=== PATIENT | female | born 1995 | race Caucasian/White ===

== ENCOUNTER 2022-06-01 09:40 | Day surgery (SDC) | payer BC, SELFPAY ==
[2022-06-01] VITALS (10 sets, daily range): BP systolic 137–171; BP diastolic 85–107; PULSE 84–97; RESP 11–16; TEMP 36.5–36.8; O2SAT 92–100; BMI 45.6
[2022-06-01 10:07] LABS: HCG Qualitative* Negative (Negative)
[2022-06-01] MEDS: LACTATED RINGERS 1000 ML 1,000 ML 100 ML IV (10:30)
--- NOTE | 2022-06-01 12:46 | W.ANESCHARGE ---
Anesthesia Charges Start Date/Time Anesthesia Start Date: 06/01/22 Anesthesia Start Time: 11:49 Stop Date/Time Anesthesia Stop Date: 06/01/22 Anesthesia Stop Time: 12:39 Summary Emergency: No
--- NOTE | 2022-06-01 12:48 | W.ANESCHARGE ---
Anesthesia Charges Start Date/Time Anesthesia Start Date: 06/01/22 Anesthesia Start Time: 11:49 Stop Date/Time Anesthesia Stop Date: 06/01/22 Anesthesia Stop Time: 12:39 Summary Emergency: No
--- NOTE | 2022-06-01 13:34 | W.PM.ENTPROC ---
Procedure Note Date of procedure: 06/01/22 Procedure: Preoperative diagnosis chronic tonsillitis Postoperative diagnosis same plus tonsillar hypertrophy Procedure tonsillectomy Under general endotracheal anesthesia patient was prepped and draped in usual fashion. The McIvor mouth gag was inserted and the tongue retracted forward. The right tonsil was removed with a combination of needlepoint and Coblation cautery. It was quite large. The nasopharynx was inspected and there was no significant adenoid tissue. The left tonsil was removed again with needlepoint cautery and Coblation. The patient tolerated procedure well and was taken recovery in satisfactory condition. 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 Blood loss during procedure was less than 20 mL. There were no complications Surgeon: Papi Fallon MD
--- NOTE | 2022-06-01 13:46 | SUR.PHASEII ---
PATIENT EATING SHERBET AND DRINKING WITHOUT PROBLEMS.
== END 2022-06-01 14:10 | disposition home or self-care (01) ==
PROVIDERS: Anesthesiology; PCP Physician Assistant Medical; Visit Provider Otolaryngology
PROC: (CPT 42826; principal; 2022-06-01 11:45)
DX: J35.01 Chronic tonsillitis (principal)
CPT/HCPCS: 42826; 00170; 84703; 88304; A9270; J0330; J2250; J2704; J3010; J3490; J7120

== ENCOUNTER 2022-08-28 09:34 | Outpatient (CLI) | payer BC, SELFPAY ==
[2022-08-28 14:18] LABS: Vitamin D 25 Hydroxy* 18 ng/mL (30-80)
[2022-08-28 14:35] LABS: Ferritin* 45.5 ng/mL (6.24-137.0)
[2022-08-28 14:49] LABS: Vitamin B12* 262 pg/mL (243-894)
== END 2022-08-28 09:35 | disposition home or self-care (01) ==
PROVIDERS: PCP Physician Assistant Medical; Visit Provider Physician Assistant Medical
DX: M79.7 Fibromyalgia (principal); R53.83 Other fatigue; E03.9 Hypothyroidism, unspecified; E66.01 Morbid (severe) obesity due to excess calories
CPT/HCPCS: 82306; 82607; 82728; 84443

== ENCOUNTER 2022-11-12 00:40 | Emergency (ER) | payer BC, SELFPAY ==
[2022-11-12 00:45] VITALS: BP 155/101; PULSE 89; RESP 16; TEMP 36.2; O2SAT 99
[2022-11-12 00:49] VITALS: RESP 18; O2SAT 97
--- NOTE | 2022-11-12 01:14 | ED.GENADULT ---
HPI - General Adult General Chief complaint: Unspecified Complaint, Adult Stated complaint: right side of face paralyzed, can't taste Time Seen by Provider: 11/12/22 01:02 History of Present Illness HPI narrative: 27-year-old young woman here with significant other with concern of loss of sensation of the right side of her face as well as inability to taste along her right tongue. This is now been going on about 2 days. Initially inquired regarding rashes; does not recall any until recalls a cold sore about a week ago which apparently has resolved. No oral blisters. Is not experiencing pain. No visual changes. No new dental problems. Related Data Home Medications Medication Instructions Recorded Confirmed cholecalciferol (vitamin D3) 25 2,000 unit PO DAILY 05/31/22 08/28/22 mcg (1,000 unit) capsule etonogestrel 0.12 mg-ethinyl 1 vag ring vaginal DIRECTED 05/31/22 08/28/22 estradiol 0.015 mg/24 hr vaginal ring Previous Rx's Medication Instructions Recorded duloxetine 60 mg capsule,delayed 60 mg PO BID #180 caps 08/13/22 release albuterol sulfate 90 mcg/actuation 2 puff inhalation Q4H PRN 08/28/22 aerosol inhaler bronchospasm #8.5 grams levothyroxine 50 mcg tablet 50 mcg PO DAILY #90 tabs 08/28/22 prednisone 20 mg tablet 40 mg PO BID 7 days #28 tabs 11/12/22 valacyclovir 1 gram tablet 1,000 mg PO TID 7 days #21 tabs 11/12/22 Allergies Allergy/AdvReac Type Severity Reaction Status Date / Time kiwi Allergy Severe Swelling Verified 08/24/22 16:08 of Lip/Tongue/Throat nut - unspecified Allergy Severe Swelling Verified 08/24/22 16:08 of Lip/Tongue/Throat Review of Systems Status of ROS: Reports: 6 or more systems reviewed and unremarkable except as noted in History and below PFSH PFSH Surgical History History of tonsillectomy [place] teeth extracted Family History Other Depression Social History Narrative: Marijuana use Smoking Status: Current every day smoker What tobacco products do you use: cigarettes Do you use any of these nicotine containing products: E-Cigarettes Second hand tobacco smoke exposure: Yes How often do you have a drink containing alcohol: 2-4 times a month How many standard drinks containing alcohol do you have on a typical day: 3 or 4 AUDIT-C Alcohol total score: 3 Non-prescribed substance use: marijuana (any form) Little interest or pleasure in doing things: several days Feeling down, depressed, or hopeless: more than half the days service: No Exam Narrative: Exam Narrative: Pleasant. NAD. She is not demonstrating dysarthria. There is clearly diminished motor over the entire right side of her face. Is able to blink but not as much as the left. TMs and ear canals are clear. Oropharynx is clear of lesions. Neck is supple without lymphadenopathy. She has good strength and intact sensation other than a sense of numbness over the right side of her face. PERRLA. Const: Vital Signs, click to edit/add: Vital Signs - 24 hr 11/12/22 00:45 11/12/22 00:49 Temperature 97.1 F L Pulse Rate [Left P ulse Oximeter] 89 Respiratory Rate 16 Respiratory Rate [ Right Jaw] 18 Blood Pressure [Ri ght Upper Arm] 155/101 H Pulse Oximetry 99 Oxygen Delivery Me thod Room Air Documenting provider has reviewed patient's vital signs: yes Course Vital Signs Vital signs: Initial Vital Signs Temperature 97.1 F L 11/12/22 00:45 Temperature Source Temporal Artery Scan 11/12/22 00:45 Pulse Rate 89 11/12/22 00:45 Pulse Rhythm 11/12/22 00:45 Respiratory Rate 16 11/12/22 00:45 Blood Pressure 155/101 H 11/12/22 00:45 Blood Pressure Mean 119 11/12/22 00:45 Blood Pressure Position Semi-Fowlers 11/12/22 00:45 Pulse Oximetry 99 11/12/22 00:45 Oxygen Delivery Method 11/12/22 00:45 Vital Signs Temperature 97.1 F L 11/12/22 00:45 Pulse Rate 89 11/12/22 00:45 Respiratory Rate 16 11/12/22 00:45 Blood Pressure 155/101 H 11/12/22 00:45 Pulse Oximetry 99 11/12/22 00:45 Oxygen Delivery Method 11/12/22 00:45 Temperature 97.1 F L 11/12/22 00:45 Pulse Rate 70 11/12/22 01:39 Respiratory Rate 16 11/12/22 01:39 Blood Pressure 148/62 H 11/12/22 01:39 Pulse Oximetry 96 11/12/22 01:39 Oxygen Delivery Method 11/12/22 01:39 Medical Decision Making MDM Narrative Medical decision making narrative: Given distribution I would not have concerns about this being a central issue. She still within the window to potentially benefit from antivirals and maybe steroids as well. 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 Perhaps triggered by or heralded by this cold sore 1 week ago. Discharge Plan Discharge Clinical Impression: Gonzales's palsy Patient Disposition: Home w/ Parent or Adult Condition: Stable Additional Instructions: I would consider eye patching at night. Otherwise during the day keep moist with generic eye ointment or other lubricating eye drop. You might want to take the 2nd dose of steroid earlier in the afternoon just because it can be a little stimulating. It may do nothing but can interfere with sleep. Might need help with diphenhydramine or doxylamine for sleep. Report any blisters. Prescriptions: New prednisone 20 mg tablet 40 mg PO BID 7 Days Qty: 28 0RF valacyclovir 1 gram tablet 1,000 mg PO TID 7 Days Qty: 21 0RF No Action cholecalciferol (vitamin D3) 25 mcg (1,000 unit) capsule 2,000 unit PO DAILY etonogestrel-ethinyl estradiol 0.12-0.015 mg/24 hr ring 1 vag ring vaginal DIRECTED Rx Instructions: INSERT VAGINALLY. LEAVE IN PLACE FOR 3 WEEKS, FOLLOWED BY A 1 WEEKREST. THENINSERT NEW RING. albuterol sulfate 90 mcg/actuation HFA aerosol inhaler 2 puff inhalation Q4H PRN (Reason: bronchospasm) Qty: 8.5 5RF levothyroxine 50 mcg tablet 50 mcg PO DAILY Qty: 90 3RF duloxetine 60 mg capsule,delayed release(DR/EC) 60 mg PO BID Qty: 180 2RF Follow Up/Referrals: Mitchell Parnell, MARISA [Primary Care Provider] - Stand Alone Forms: [employer] Info Instructions
[2022-11-12] MEDS: predniSONE 20 MG TABLET 60 MG PO (01:27)
[2022-11-12] MEDS: VALACYCLOVIR HCL 500 MG TABLET 1000 MG PO (01:30)
[2022-11-12 01:39] VITALS: BP 148/62; PULSE 70; RESP 16; O2SAT 96
== END 2022-11-12 01:41 | disposition home or self-care (01) ==
PROVIDERS: Emergency Provider Family Medicine; PCP Physician Assistant Medical
DX: G51.0 Bell's palsy (principal)
CPT/HCPCS: 99283; A9270; J7512

== ENCOUNTER 2023-01-15 20:52 | Emergency (ER) | payer BC, SELFPAY ==
[2023-01-15 21:21] VITALS: BP 155/88; PULSE 89; RESP 18; TEMP 36.7; O2SAT 99; BMI 41.8
--- NOTE | 2023-01-15 21:53 | ED_ITS ---
HPI - General Adult General Chief complaint: OB/Uterine Contractions Stated complaint: 7 weeks prego, minor bleeding, feels faint Time Seen by Provider: 01/15/23 21:34 History of Present Illness HPI narrative: 27-year-old young woman presenting to the emergency department with significant other noting an approximately 7 week with last menstrual period of 11/25/2022. She has begun over the last couple of days to have spotting noted after urination. No dysuria. No fever. No unusual vaginal discharge. She is . She is not having abdominal pains different from her usual noting some more chronic abdominal discomfort; this is no different. Sounds as though there is some degree of PCOS. Notes also fibromyalgia can affect discomfort. No new cramping pain. Did have coitus prior to this spotting. She has not yet felt quickening. Has not had ultrasound confirming location of . She has not experienced any breast tenderness nor significant nausea. Related Data Home Medications Medication Instructions Recorded Confirmed cholecalciferol (vitamin D3) 25 2,000 unit PO DAILY 05/31/22 01/15/23 mcg (1,000 unit) capsule etonogestrel 0.12 mg-ethinyl 1 vag ring vaginal DIRECTED 05/31/22 08/28/22 estradiol 0.015 mg/24 hr vaginal ring Previous Rx's Medication Instructions Recorded duloxetine 60 mg capsule,delayed 60 mg PO BID #180 caps 08/13/22 release albuterol sulfate 90 mcg/actuation 2 puff inhalation Q4H PRN 08/28/22 aerosol inhaler bronchospasm #8.5 grams levothyroxine 50 mcg tablet 50 mcg PO DAILY #90 tabs 08/28/22 prednisone 20 mg tablet 40 mg PO BID 7 days #28 tabs 11/12/22 valacyclovir 1 gram tablet 1,000 mg PO TID 7 days #21 tabs 11/12/22 Allergies Allergy/AdvReac Type Severity Reaction Status Date / Time kiwi Allergy Severe Swelling Verified 08/24/22 16:08 of Lip/Tongue/Throat nut - unspecified Allergy Severe Swelling Verified 08/24/22 16:08 of Lip/Tongue/Throat Review of Systems Status of ROS: Reports: 6 or more systems reviewed and unremarkable except as noted in History and below PFSH PFS Medical History Fibromyalgia ?M79.7 - Fibromyalgia (ICD-10) GERD (gastroesophageal reflux disease) ?K21.9 - Gastro-esophageal reflux disease without esophagitis (ICD-10) Hypothyroid ?E03.9 - Hypothyroidism, unspecified (ICD-10) Migraines ?G43.909 - Migraine, unspecified, not intractable, without status migrainosus (ICD-10) PCOS (polycystic ovarian syndrome) ?E28.2 - Polycystic ovarian syndrome (ICD-10) Surgical History History of tonsillectomy ?Z90.89 - Acquired absence of other organs (ICD-10) [place] teeth extracted ?K08.409 - Partial loss of teeth, unspecified cause, unspecified class (ICD- 10) Family History Other Depression Social History Narrative: Marijuana use Smoking Status: Current some day smoker What tobacco products do you use: cigarettes Second hand tobacco smoke exposure: Yes How often do you have a drink containing alcohol: 2-4 times a month How many standard drinks containing alcohol do you have on a typical day: 3 or 4 AUDIT-C Alcohol total score: 3 Non-prescribed substance use: marijuana (any form) Little interest or pleasure in doing things: several days Feeling down, depressed, or hopeless: more than half the days service: No Exam Narrative: Exam Narrative: Pleasant. Tall. Obese. Speaking easily fluidly and breathing easily. Moving all extremities without difficulty. Has a light abrasion in her right ankle that she associates with rubbing in her boot. Heart is distant but regular rate and rhythm no murmur rub or gallop identified. Abdomen is mildly sore throughout the mid and low abdomen to palpation. Overweight weight. Soft. No masses appreciated. exam was not done Const: Vital Signs, click to edit/add: Vital Signs - 24 hr 01/15/23 21:21 01/15/23 23:56 01/15/23 23:58 Temperature 98.0 F 97.9 F 97.9 F Pulse Rate [Right Pulse Oximeter] 89 84 84 Respiratory Rate 18 18 18 Blood Pressure [Ri ght Upper Arm] 155/88 H 125/78 125/78 Pulse Oximetry 99 99 Oxygen Delivery Me thod Room Air Room Air Documenting provider has reviewed patient's vital signs: yes Course Vital Signs Vital signs: Initial Vital Signs Temperature 98.0 F 01/15/23 21:21 Temperature Source Temporal Artery Scan 01/15/23 21:21 Pulse Rate 89 01/15/23 21:21 Respiratory Rate 18 01/15/23 21:21 Blood Pressure 155/88 H 01/15/23 21:21 Blood Pressure Mean 110 H 01/15/23 21:21 Blood Pressure Position Sitting 01/15/23 21:21 Pulse Oximetry 99 01/15/23 21:21 Oxygen Delivery Method Room Air 01/15/23 21:21 Vital Signs Temperature 98.0 F 01/15/23 21:21 Pulse Rate 89 01/15/23 21:21 Respiratory Rate 18 01/15/23 21:21 Blood Pressure 155/88 H 01/15/23 21:21 Pulse Oximetry 99 01/15/23 21:21 Oxygen Delivery Method Room Air 01/15/23 21:21 Temperature 97.9 F 01/15/23 23:58 Pulse Rate 84 01/15/23 23:58 Respiratory Rate 18 01/15/23 23:58 Blood Pressure 125/78 01/15/23 23:58 Pulse Oximetry 99 01/15/23 23:56 Oxygen Delivery Method Room Air 01/15/23 23:56 Medical Decision Making MDM Narrative Medical decision making narrative: Significant other in part particular expresses concerns regarding Viki's health and health of ?the baby?. While I acknowledge that IUP has not been confirmed I am reassured by what I am hearing here today. Recent coitus could certainly have contributed to some of the spotting. I think urinalysis should be done along with hCG quantitative. Pending discomfort and hCG result would do ultrasound. Takes some time to return lab results in busy emergency department. HCG quantitative returns at approximately 6800 which is low normal for expected dates of 7+ 2. Urinalysis with 2-5 reds and 5-10 whites on microscopic - not inconsistent with I would think. Viki does have obstetrical follow-up in 9-10 days time. I do offer bedside ultrasound for quick look to attempt to confirm location. At this time Viki prefers not to have any further evaluation done and return home she is anticipating work in the morning. At this point I would recommend close follow-up for recheck of quantitative hCG. Sooner evaluation if pain is escalating. See patient discharge plan. Lab Data Lab results reviewed: Yes I reviewed the patient's lab results Labs: Lab Results 01/15/23 01/15/23 Range/Units 21:53 22:30 HCG, Quant 6811.70 mIU/mL Urine Color Yellow (Yellow) Urine Appearance Clear (Clear) Urine pH 6.5 (5.0-8.5) Ur Specific [place] 1.025 (1.000-1.030) Urine Protein Negative (Negative) Urine Glucose (UA) Negative (Negative) Urine Ketones Negative (Negative) Urine Blood Trace-intact A (Negative) Urine Nitrite Negative (Negative) Urine Bilirubin Negative (Negative) Urine Urobilinogen 0.2 (0.2-1.0) Ur Leukocyte Esterase Negative (Negative) Urine RBC 2-5 A (0-2) Urine WBC 5-10 A (0-5) Ur Squamous Epith Cells Few (None-Few) Urine Bacteria Few A (None) Discharge Plan Discharge Clinical Impression: Spotting during Patient Disposition: Home w/ Parent or Adult Condition: Stable Additional Instructions: We will be culturing your urine. We will let you know if seems to warrant treatment. Your serum quantitative of 6800 is approximately where we would expect it to be given your estimated gestation of 7 weeks and 2 days. I would ask you though to follow up in clinic late or sometime Saturday for a blood draw. If your bleeding increases, and especially if you get increasing abdominal pain, I would be seen sooner as we have not absolutely confirmed intrauterine as discussed. Prescriptions: No Action cholecalciferol (vitamin D3) 25 mcg (1,000 unit) capsule 2,000 unit PO DAILY etonogestrel-ethinyl estradiol 0.12-0.015 mg/24 hr ring 1 vag ring vaginal DIRECTED Rx Instructions: INSERT VAGINALLY. LEAVE IN PLACE FOR 3 WEEKS, FOLLOWED BY A 1 WEEKREST. THENINSERT NEW RING. albuterol sulfate 90 mcg/actuation HFA aerosol inhaler 2 puff inhalation Q4H PRN (Reason: bronchospasm) Qty: 8.5 5RF levothyroxine 50 mcg tablet 50 mcg PO DAILY Qty: 90 3RF prednisone 20 mg tablet 40 mg PO BID 7 Days Qty: 28 0RF valacyclovir 1 gram tablet 1,000 mg PO TID 7 Days Qty: 21 0RF duloxetine 60 mg capsule,delayed release(DR/EC) 60 mg PO BID Qty: 180 2RF Follow Up/Referrals: Mitchell Parnell PA-C [Primary Care Provider] - Stand Alone Forms: [employer] Info Instructions
[2023-01-15 22:29] LABS: Appearance Urine Clear (Clear); Bilirubin Urine Negative (Negative); Blood Urine Trace-intact (Negative); Color Urine Yellow (Yellow); Glucose Urine Negative (Negative); Ketones Urine Negative (Negative); Leukocyte Esterase Urine Negative (Negative); Nitrite Urine Negative (Negative); Protein Urine Negative (Negative); Specific Gravity Urine 1.025 (1.000-1.030); Urobilinogen Urine 0.2 (0.2-1.0); pH Urine 6.5 (5.0-8.5)
[2023-01-15 22:45] LABS: Bacteria Urine Few; Squamous Epithelial Cell Urine Few (None-Few)
[2023-01-15 23:56] VITALS: BP 125/78; PULSE 84; RESP 18; TEMP 36.6; O2SAT 99
[2023-01-15 23:58] VITALS: BP 125/78; PULSE 84; RESP 18; TEMP 36.6
== END 2023-01-15 23:58 | disposition home or self-care (01) ==
PROVIDERS: Emergency Provider Family Medicine; PCP Physician Assistant Medical
DX: O26.851 Spotting complicating pregnancy, first trimester (principal)
CPT/HCPCS: 36415; 81001; 84702; 87086; 99283; 99284

== ENCOUNTER 2023-01-25 10:06 | Outpatient (CLI) | payer BC, SELFPAY ==
--- NOTE | 2023-01-25 10:15 | CRLHL7_ITS ---
For Patients: As a result of the Cures Act, medical imaging exams and procedure reports are released immediately into your electronic medical record. You may view this report before your referring provider. If you have questions, please contact your health care provider. INDICATION: First trimester scan, establish dates. COMPARISON: None. TECHNIQUE: Real-time borden-scale imaging of the pelvis was performed. FINDINGS: Sonographic imaging demonstrates a single living intrauterine gestation. The embryo demonstrates a regular cardiac rate measuring 142 beats per minute. The embryo`s crown-rump length measurement of 1.1 cm corresponds to a gestational age of 7 weeks 1 day with a sonographic due date of 09/12/2023. There is a normal-appearing yolk sac. There are no gross abnormalities noted within the embryo at this early state of development. The gestational sac has a normal appearance. There is no evidence of a perigestational hemorrhage. The amount of fluid within the sac appears appropriate for gestational age. The cervix is closed. The myometrium appears normal. Corpus luteal right ovarian cyst. Nonvisualization of the left ovary. There are no suspicious fluid collections noted in the cul-de-sac. IMPRESSION: Single living intrauterine with sonographic gestational age 7 weeks 1 day and sonographic due date 09/12/2023. Dictated by Hermilo Gomez MD @ 01/25/2023 11:18:01 AM (Electronically Signed)
== END 2023-01-25 10:07 | disposition home or self-care (01) ==
LOC: US 10:06
PROVIDERS: PCP Physician Assistant Medical; Visit Provider Physician Assistant
DX: Z34.91 Encounter for supervision of normal pregnancy, unspecified, first trimester (principal); Z3A.01 Less than 8 weeks gestation of pregnancy
CPT/HCPCS: 76817; 82565; 82570; 84156; 84443; 84450; 84460; 84520; 84550; 86592; 86703; 86762; 86787; 86803; 86850; 86900; 86901; 87086; 87340; 87491; 87591